=== PATIENT | female | born 1995 | race Two or more races ===

== ENCOUNTER 2020-01-17 13:22 | Emergency (ER) | payer MEDICAID ==
[~2020-01-17] VITALS: Ht 154.9 cm; Wt 61.2 kg
--- NOTE | 2020-01-17 13:40 | NUR ---
bib self abdominal pain x 2 weeks, worst the past couple days. also c/o diarrhea. vs checked,. iv access started. blood draw done. sent to lab
--- NOTE | 2020-01-17 13:45 | NUR ---
urine collected sent to lab
[2020-01-17] MEDS ORDERED: ONDANSETRON HCL/PF 4 MG/2 ML VIAL ONE (14:30)
[2020-01-17] MEDS ORDERED: ONDANSETRON HCL/PF 4 MG/2 ML VIAL IVP ONE (14:30)
[2020-01-17] MEDS ORDERED: PANTOPRAZOLE 40 MG VIAL ONE (14:30)
[2020-01-17] MEDS ORDERED: PANTOPRAZOLE 40 MG VIAL IV ONE (14:30)
[2020-01-17] MEDS ORDERED: IV NS 0.9% 1,000 ML BAG IV ONE (14:30)
[2020-01-17 14:35] LABS: BASOPHILS % (AUTO) 0.2 % (0.0-2.0); EOSINOPHILS % (AUTO) 0.7 % (0.0-6.0); HEMATOCRIT 40 % (33-45); HEMOGLOBIN 13.3 g/dL (11.5-14.8); LYMPHOCYTES # (AUTO) 1.8 /CMM (0.8-4.8); LYMPHOCYTES % (AUTO) 29.6 % (20.0-44.0); MEAN CORPUSCULAR HGB CONC 34 g/dl (31.0-36.0); MEAN CORPUSCULAR VOLUME 90 fL (82-100); MONOCYTES # (AUTO) 0.4 /CMM (0.1-1.30); MONOCYTES % (AUTO) 7.4 % (2.0-12.0); NEUTROPHILS # (AUTO) 3.7 /CMM (1.8-8.9); NEUTROPHILS % (AUTO) 62.1 % (43.0-81.0); PLATELET COUNT (AUTO) 239 /CMM (150-450); RED BLOOD CELL COUNT(AUTO) 4.42 MIL/uL (4.0-5.2)
[2020-01-17 14:58] LABS: ALBUMIN 4.4 g/dL (3.4-5.0); BILIRUBIN,DIRECT 0.1 mg/dL (0.0-0.2); BILIRUBIN,TOTAL 0.3 mg/dL (0.2-1.0); CALCIUM, SERUM 9.1 mg/dL (8.5-10.1); CREATININE 0.7 mg/dL (0.6-1.3); POTASSIUM 3.8 mmol/L (3.5-5.1)
--- NOTE | 2020-01-17 15:52 | NUR ---
bladder scan done. pvr=78ml.
--- NOTE | 2020-01-17 16:17 | NUR ---
Patient discharged to home in stable condition. Written and verbal after care instructions given. Patient verbalizes understanding of instruction. IV removed. Catheter intact and site benign. Pressure and 4x4 applied to site. No bleeding noted.
[2020-01-17 16:19] VITALS: BP 138/81
== END 2020-01-17 16:19 | disposition home or self-care (01) ==
LOC: ER 13:27
DX: R10.10 Upper abdominal pain, unspecified (principal); R19.7 Diarrhea, unspecified; K58.9 Irritable bowel syndrome, unspecified
CPT/HCPCS: 36415; 74176; 76705; 80048; 80076; 83690; 84703; 85025; 96361; 96374; 96375; 99285; C9113; J2405; J7030